=== PATIENT | female | born 1985 | race Caucasian/White ===

== ENCOUNTER 2020-06-15 04:17 | Inpatient (IN) | payer MEDICARE, MEDICAID, SELFPAY ==
[2020-06-15 04:29] VITALS: BMI 41.0
[2020-06-15 05:56] VITALS: BP 149/99; PULSE 84; RESP 18; TEMP 36.7; O2SAT 97
--- NOTE | 2020-06-15 05:59 | PC.NURSE ---
Patient is hard of hearing and reads lips. She has minimal ability to hear you. Speak slow and precisely while facing her and ask her to repeat information to you. She stated that she does not have insurance coverage that will pay for hearing aides.
--- NOTE | 2020-06-15 06:00 | PC.SOCIAL ---
Patient is hard of hearing and stated that she does not have insurance that will cover a hearing aide. Raul.. there is a program at [facility] that can provide hearing aides at a reduced/free cost. The exam is free also. It is throught the Audiology Dept.
[2020-06-15 06:23] VITALS: BP 149/99; PULSE 84; RESP 18; TEMP 36.7; O2SAT 97
[2020-06-15 06:40] LABS: Glucose Point of Care 276 mg/dL (70-110)
[2020-06-15 07:35] VITALS: BP 149/99; PULSE 84; RESP 18; TEMP 36.7; O2SAT 97
--- NOTE | 2020-06-15 11:15 | PM.NHP ---
Providers/Chief Complaint Admitting Physician: Jamie Lyons MD Primary Care Provider: Bia Menard MD Chief Complaint: AUDITORY HALLUCINATIONS/SCHIZOPHRENIA HPI NPU History of Present Illness RAHUL MAURER is a 34 year old female who came to us from [place]. She had presented there with command auditory hallucinations telling her to harm herself. These began 2 days ago and she has a prior history of bipolar disorder, and schizophrenia, most likely schizoaffective disorder, bipolar type. She had no psychotic symptoms for 4 years after her last delivery and has done very well. Fortunately she does not have a plan for suicide nor does she actually desire or intend to act on these voices and is seeking help. Current Medications Acetaminophen (Tylenol) 650 mg PO Q4H PRN PRN Reason: MILD PAIN Benztropine Mesylate (Cogentin) 1 mg PO BID PRN PRN Reason: Mild Extrapyramidal symptoms Camphor/Menthol/Phenol (Blistex) 1 applic TOPICAL Q1H PRN PRN Reason: DRYNESS Diphenhydramine HCl (Benadryl) 50 mg IM ONCE PRN PRN Reason: Severe Extrapyramidal Symptoms Diphenhydramine HCl (Benadryl) 50 mg IM Q4H PRN PRN Reason: Severe Aggression Haloperidol (Haldol) 5 mg PO Q4H PRN PRN Reason: AGITATION Haloperidol Lactate (Haldol Inj) 5 mg IM Q4H PRN PRN Reason: Severe Aggression Hydroxyzine Pamoate (Vistaril) 50 mg PO Q6H PRN PRN Reason: ANXIETY Loperamide HCl (Imodium Capsule) 2 mg PO Q6H PRN PRN Reason: DIARRHEA Lorazepam (Ativan) 2 mg IM Q4H PRN PRN Reason: Severe Aggression Nicotine (Nicoderm 21 Mg Patch) 1 patch TRANSDERMA DAILY PRN PRN Reason: NICOTINE WITHDRAWAL Nicotine Polacrilex (Nicorette) 2 mg BUCCAL Q2H PRN PRN Reason: NICOTINE WITHDRAWAL Olanzapine (Zyprexa Zydis) 5 mg PO Q4H PRN PRN Reason: Agitation/Psychosis Ondansetron HCl (Zofran) 4 mg PO Q6H PRN PRN Reason: NAUSEA AND VOMITING Trazodone HCl (Desyrel) 50 mg PO BEDTIME PRN PRN Reason: SLEEP Note: Patient is also on NovoLog sliding scale. She says she is on a minimal sliding scale with her NovoLog. We'll start with mild and monitor. If that proves insufficient we will move it up to moderate and monitor, etc. She will also be placed on her home meds and we will monitor for tolerance and affect, with possible modification as indicated. Review of Systems ENMT: Reports: change in hearing (Patient is significantly hearing impaired. We have to drop our masks so she can read lips.) Meds NPU Home Medications Medication Instructions Recorded Confirmed Last Taken Type amitriptyline 10 mg PO DAILY 06/15/20 06/15/20 06/15/20 History 10 mg amlodipine 2.5 mg PO DAILY 06/15/20 06/15/20 06/14/20 09:00 History 2.5 mg buspirone 5 mg PO BID 06/15/20 06/15/20 Unknown History carvedilol 25 mg PO BID 06/15/20 06/15/20 06/15/20 History 25 mg fluoxetine 40 mg PO DAILY 06/15/20 06/15/20 06/14/20 History 40 fluoxetine [Prozac] 20 mg PO DAILY 06/15/20 06/15/20 Unknown History insulin aspart U-100 [Novolog 5 unit SUBCUT QID 06/15/20 06/15/20 Unknown History U-100 Insulin aspart] insulin glargine [Lantus U-100 15 unit SUBCUT Q12H 06/15/20 06/15/20 Unknown History Insulin] lisinopril 10 mg PO BID 06/15/20 06/15/20 06/14/20 09:00 History lurasidone [Latuda] 40 mg PO DAILY 06/15/20 06/15/20 06/14/20 09:00 History 40 mg magnesium oxide 400 mg PO BID 06/15/20 06/15/20 Unknown History prazosin 1 mg PO DAILY 06/15/20 06/15/20 06/15/20 History 1 mg topiramate 25 mg PO BID 06/15/20 06/15/20 Unknown History topiramate 25 mg PO BID 06/15/20 06/15/20 06/14/20 21:00 History 25 mg Allergies Allergy/AdvReac Type Severity Reaction Status Date / Time buspirone [From BuSpar] Allergy Unknown Verified 06/15/20 05:12 ibuprofen [From Motrin] Allergy Unknown Verified 06/15/20 05:12 Latex, Natural Rubber Allergy Unknown Verified 06/15/20 05:12 montelukast [From Singulair] Allergy Unknown Verified 06/15/20 05:12 naproxen Allergy Unknown Verified 06/15/20 05:12 Penicillins Allergy Unknown Verified 06/15/20 05:12 PFSH NPU PFSH: Medical History (Updated 06/15/20 @ 11:53 by Rajesh Mena) Asthma says H HAS HAD ASTHMA SINCE CHILD, SUPPOSED TO USE CPAP 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 She is said to have had at least 250 hospitalizations, which seems rather unstable for her 34 years, particularly in light of the fact that she does ended four years without symptoms Mental Status Exam MSE Comments: This is a 34-year-old female who appears her stated age. She is clean and neat and well kempt. Mood is calm and affect is appropriate. She is actually cheerful and cooperative. There are no odd behaviors. Thought processes are integrated and free of any racing, blocking or looseness of association. Speech is of normal rate and volume, without dysarthria, aprosody or pressure, although she is significantly hearing impaired. There is no evidence of psychosis such as but not limited to hallucinations, delusions or ideas of reference. The patient denies suicidal or homicidal ideation, plan or intent, despite her voices. Insight and judgment appear to be quite intact as is cognitive endowment. For example, she knows she needs to ?nip this in the bud? before the voices get worse. Vitals/I&O/Wt Last Vital Signs Temp 98.1 F 06/15/20 07:35 Pulse 84 06/15/20 07:35 Resp 18 06/15/20 07:35 BP 149/99 06/15/20 07:35 Pulse Ox 97 06/15/20 07:35 Weight last 48 hrs Weight 270 lb Physical Exam Narrative: EXAM NARRATIVE: This 34-year-old male presents in no acute distress. Skin shows no lesions, bruises or abrasions. Head normocephalic, no signs of injury. Ears tympanic membranes clear. No inflammation. Nose, mouth and throat show no inflammation or exudate. Eyes eyes pupils equal round regular reactive to light and accommodation. EOMs and visual perry intact. Neck supple, no bruits, no thyromegaly. Chest clear to auscultation and percussion. Heart normal sinus rhythm no murmur. Extremities no cyanosis clubbing or edema. Neurological cranial nerves II to XII intact. No cerebellar, sensory or motor deficit noted. Mental status, see above. A&P Assessment and plan (1) Schizoaffective disorder with good prognostic features: Suicidal risk is low. Status: Acute Involuntary Hold Information 96 Hour Hold: 96 Hour Involuntary Admission: No Attestations NPU Medical Necessity Statement*: I anticipate 5-7 midnights additional hospitalization. Time Spent in Patient Care: Greater than 35 minutes (>than 50% of time spent in counselling and/or direct pt care on unit). Review documentation from Rose Guzman. Consultation with medical nurse. Communication with Rose Guzman [facility] to get documentation. Interview patient. Documentation and orders. 60 minutes Coding Level of Care Code Acute Mobile Lounge Driver Or Operator for Chg Fwd Diagnoses Schizoaffective disorder with good prognostic features F25.9
[2020-06-15 11:29] LABS: Glucose Point of Care 307 mg/dL (70-110)
[2020-06-15] MEDS: lurasidone 80 mg Tablet PO (12:12)
[2020-06-15 14:00] VITALS: BP 127/85; PULSE 73; RESP 18; TEMP 36.7; O2SAT 97
[2020-06-15 17:02] LABS: Glucose Point of Care 251 mg/dL (70-110)
[2020-06-15] MEDS: carvedilol 25 mg Tablet PO (17:20)
[2020-06-15] MEDS: topiramate 25 mg Tablet PO (17:20)
[2020-06-15] MEDS: magnesium oxide 400 mg tablet PO (17:20)
[2020-06-15] MEDS: lisinopril 10 mg Tablet PO (17:20)
[2020-06-15 20:54] VITALS: BP 87/49; PULSE 80; RESP 15; TEMP 37.5; O2SAT 95
[2020-06-15 20:56] LABS: Glucose Point of Care 323 mg/dL (70-110)
[2020-06-15] MEDS: trazodone 50 mg Tablet PO (21:03)
[2020-06-15] MEDS: hyDROXYzine 25 mg Capsule 50 MG PO (21:03)
[2020-06-15] MEDS: insulin glargine 100 units/1 mL 15 UNIT SUBCUT (21:08)
[2020-06-16 06:00] VITALS: BP 120/76; PULSE 75; RESP 15; TEMP 37.1; O2SAT 97
[2020-06-16 07:20] LABS: Glucose Point of Care 260 mg/dL (70-110)
[2020-06-16] MEDS: insulin glargine 100 units/1 mL 15 UNIT SUBCUT (07:44)
[2020-06-16] MEDS: fluoxetine 20 mg Capsule PO (10:03)
[2020-06-16] MEDS: lisinopril 10 mg Tablet PO (10:03)
[2020-06-16] MEDS: topiramate 25 mg Tablet PO (10:03)
[2020-06-16] MEDS: amlodipine 5 mg Tablet 2.5 MG PO (10:03)
[2020-06-16] MEDS: magnesium oxide 400 mg tablet PO (10:03)
[2020-06-16] MEDS: prazosin 1 mg Capsule PO (10:03)
[2020-06-16] MEDS: carvedilol 25 mg Tablet PO (10:03)
[2020-06-16] MEDS: lurasidone 80 mg Tablet PO (10:03)
[2020-06-16 11:23] LABS: Glucose Point of Care 303 mg/dL (70-110)
--- NOTE | 2020-06-16 13:17 | PM.NDC ---
Diagnoses at Discharge Discharge Diagnosis (1) Schizoaffective disorder with good prognostic features: Status: Resolved Problem details: Patient has long responded to Latuda, which she says is wonderful . Reason for Visit Reason for Visit: AUDITORY HALLUCINATIONS/SCHIZOPHRENIA Hospital Course Hospital Course Day #1 Communication with Rose Guzman [facility] to get documentation, not sent. Review documentation from Rose Guzman. Consultation with medical nurse. Interview patient. Documentation and orders. 60 minutes Involuntary Hold Information 96 Hour Hold: 96 Hour Involuntary Admission: No Mental Status Exam MSE Comments: This is a 34-year-old female who presents at her stated age. She is clean, neat and well-kempt. Mood is happy and affect is appropriate. She is actually cheerful and cooperative. There are no odd behaviors. Thought processes are integrated and free of any racing, blocking or looseness of association. Speech is of normal rate and volume, without dysarthria, aprosody or pressure, although she is significantly hearing impaired. There is no evidence of psychosis such as but not limited to hallucinations, delusions or ideas of reference. The patient denies suicidal or homicidal ideation, plan or intent, despite her voices. Insight and judgment appear to be quite intact as is cognitive endowment. For example, she knew she needed to ?nip this in the bud? before the voices get worse, and she has. Physical Exam Narrative: EXAM NARRATIVE: This 34-year-old male presents in no acute distress. Skin shows no lesions, bruises or abrasions. Head normocephalic, no signs of injury. Ears tympanic membranes clear. No inflammation. Nose, mouth and throat show no inflammation or exudate. Eyes pupils equal round regular reactive to light and accommodation. EOMs and visual perry intact. Neck supple, no bruits, no thyromegaly. Chest clear to auscultation and percussion. Heart normal sinus rhythm no murmur. Extremities no cyanosis clubbing or edema. Neurological cranial nerves II to XII intact. No cerebellar, sensory or motor deficit noted. Mental status, see above. Discharge Data Data Completed and Pending: Labs from last 24 hours 06/16/20 06/16/20 06/15/20 11:20 06:59 20:52 POC Glucose 303 260 323 06/15/20 16:59 POC Glucose 251 Vitals: Last Vital Signs Temp 98.7 F 06/16/20 06:00 Pulse 75 06/16/20 06:00 Resp 15 06/16/20 06:00 BP 120/76 06/16/20 06:00 Pulse Ox 97 06/16/20 06:00 Discharge Plan Discharge Patient Disposition: Home Condition: Stable Prescriptions: New Latuda 80 mg Tablet 80 mg PO DAILY 30 Days Qty: 30 RF: 2 Continued amitriptyline 10 mg tablet 10 mg PO DAILY RF: 0 fluoxetine 40 mg capsule 40 mg PO DAILY RF: 0 carvedilol 25 mg tablet 25 mg PO BID RF: 0 prazosin 1 mg capsule 1 mg PO DAILY RF: 0 topiramate 25 mg tablet 25 mg PO BID RF: 0 amlodipine 2.5 mg tablet 2.5 mg PO DAILY RF: 0 lisinopril 10 mg tablet 10 mg PO BID RF: 0 buspirone 5 mg Tablet 5 mg PO BID RF: 0 Lantus U-100 Insulin 100 unit/mL Solution 15 unit SUBCUT Q12H RF: 0 magnesium oxide 400 mg magnesium Tablet 400 mg PO BID RF: 0 Prozac 20 mg Capsule 20 mg PO DAILY RF: 0 topiramate 25 mg Tablet 25 mg PO BID RF: 0 Novolog U-100 Insulin aspart 100 unit/mL Solution 5 unit SUBCUT QID RF: 0 Discontinued Latuda 40 mg tablet 40 mg PO DAILY RF: 0 Discharge Orders: Discharge Order (Routine); Ordered 06/16/20 Ordered By: Rajesh Mena Referrals: [facility] [Other] (Eneida Brenner June 30 @ 10:15 a.m. at [facility] July 01 @ 4:00 p.m. telephone visit for individual therapy ) Discharge Diet: Usual diet Discharge Activity: Resume usual activity Patient Instructions: Lurasidone (By mouth), Schizoaffective Disorder (DC) Discharge Date/Time: 06/16/20 14:22 Discharge Attestations NPU Time Spent in Discharge Care*: greater than 30 min Specific Discharge Activities: Specific discharge activities: educating patient, discussing with rn case manager hospice/social workers/dc planners, documenting/other paperwork and evaluating patient/reviewing data Coding Level of Care Code Acute Um Nurse for [facility] Fwd Diagnoses Schizoaffective disorder with good prognostic features F25.9
[2020-06-16 13:20] VITALS: BP 120/76; PULSE 75; RESP 15; TEMP 37.1; O2SAT 97
[2020-06-16 13:46] VITALS: BP 118/77; PULSE 82; RESP 18; TEMP 36.7; O2SAT 96
--- NOTE | 2020-06-16 14:19 | PC.NURSE ---
Home meds [facility] [place] to [place] new prescription for Latuda today. Meds transmitted to [facility] per patient.
== END 2020-06-16 14:22 | disposition home or self-care (01) | DRG 885 ==
PROVIDERS: Admitting Provider Psychiatry & Neurology Psychiatry; Visit Provider Psychiatry & Neurology Psychiatry
DX: F25.8 Other schizoaffective disorders (principal)
CPT/HCPCS: 12345; 36416; 82962; 96372; J1815 ×2